=== PATIENT | female | born 1980 | race Caucasian/White ===

== ENCOUNTER 2017-09-01 21:27 | Observation (INO) | payer SELFPAY ==
[2017-09-01] MEDS ORDERED: Morphine 4 MG/ML VIAL ONE (22:24)
[2017-09-01] MEDS ORDERED: Ondansetron HCl/PF 4 MG/2 ML Vial ONE (22:25)
--- NOTE | 2017-09-01 23:05 | ULT ---
RIGHT UPPER QUADRANT SONOGRAM: 09/01/17 HISTORY: Right upper quadrant pain. FINDINGS: Gallbladder is distended up to 9.0 cm. No stones are apparent. There is no pericholecystic fluid. Leeann er is unremarkable without focal mass or intrahepatic biliary dilatation. Common duct is slightly dil ated at 0.8 cm. No free fluid is apparent. IMPRESSION: Distention of the common duct and gallbladder or evidence of central biliary obstruction. No tones ar e directly visualized. Clinical correlation regarding other signs and symptoms of biliary obstruction is required. Radionuclide hepatobiliary scan could be used to evaluate for biliary patency if needed . POS: [facility]
[2017-09-02] MEDS ORDERED: Morphine 4 MG/ML VIAL ONE (01:07)
[2017-09-02] MEDS ORDERED: Ondansetron HCl/PF 4 MG/2 ML Vial ONE (01:07)
[2017-09-02] MEDS ORDERED: traMADol HCl 50 MG TAB PO PRN (02:28)
[2017-09-02] MEDS ORDERED: Nitroglycerin 0.4 MG TAB (25 Tab Bottle) SL PRN (02:28)
[2017-09-02] MEDS ORDERED: Benzonatate 100 MG CAP PO PRN (02:28)
[2017-09-02] MEDS ORDERED: Loratadine 10 MG TAB PO PRN (02:28)
[2017-09-02] MEDS ORDERED: Bisacodyl 5 MG TAB PO PRN (02:28)
[2017-09-02] MEDS ORDERED: Mag-Al 1200 mg/1200 mg/30 ML UDCUP PO PRN (02:28)
[2017-09-02] MEDS ORDERED: Calcium Carbonate 500 MG ChewTAB PO PRN (02:28)
[2017-09-02] MEDS ORDERED: Lorazepam 2 MG/ML VIAL SLOW IVP PRN (02:28)
[2017-09-02] MEDS ORDERED: Senokot 8.6 MG TAB PO PRN (02:28)
[2017-09-02] MEDS ORDERED: hydrALAZINE 20 MG/ML VIAL SLOW IVP PRN (02:28)
[2017-09-02] MEDS ORDERED: cloNIDine 0.1 MG TAB PO PRN (02:28)
[2017-09-02] MEDS ORDERED: Ondansetron HCl/PF 4 MG/2 ML Vial IVP PRN (02:28)
[2017-09-02] MEDS ORDERED: Acetaminophen 325 MG TAB PO PRN (02:28)
[2017-09-02] MEDS ORDERED: HYDROcodone/Acetaminophen 5/325 mg Tablet PO PRN (02:28)
[2017-09-02] MEDS ORDERED: Diabetic Tussin 200 MG/10 ML UDCUP PO PRN (02:28)
[2017-09-02 02:50] VITALS: BMI 33.8
[2017-09-02] MEDS ORDERED: Melatonin 3 MG TAB PO PRN (03:05)
[2017-09-02] MEDS: Morphine PF 1 MG/ML SYR IVP PRN ×4 (03:49→21:11)
[2017-09-02] MEDS: Sodium Chloride 0.9% 1,000 ML IV SCH ×2 (03:55→13:36)
[2017-09-02] MEDS: MEROPENEM 1 GM/50 ML 1 GM in Premix Bag 1 BAG IVPB SCH ×3 (03:57→21:15)
--- NOTE | 2017-09-02 05:29 | HP ---
DATE OF ADMISSION: 09/02/2017 PRIMARY CARE PHYSICIAN: None. CHIEF COMPLAINT: Right-sided abdominal pain. HISTORY OF PRESENT ILLNESS: Ms. Berman is a very pleasant 37-year-old female with past medical histo ry of cervical cancer, status post hysterectomy, who presented to the emergency room with the above-m entioned complaints. History is mainly obtained by the patient herself and electronic medical record s have been reviewed. According to the patient, she started to have some low grade abdominal pain on the right side few day s ago. It has progressively gotten worse to the point where she describes it at 15/10 in intensity. It was associated with nausea and yesterday she vomited 3 times. She has been having some low grade fever as well as chills. She denies any chest pain, shortness of breath or cough. She denies any h ematochezia, melena, diarrhea or constipation. She denies any dysuria, frequency or urgency. The pa in is mainly located in the right upper quadrant. She denies any alcohol or drug abuse. Upon presentation to the emergency room initially at [facility], she was hemodynamically stable. H er workup showed a urinary tract infection as well as leukocytosis and she was transferred to our [facility] for further evaluation. She had an acute abdominal series done at [facility], which was u nremarkable. She underwent abdominal ultrasound given her right upper quadrant pain in our emergency room. It showed distended gallbladder up to 9 cm with mild distention of the CBD at 0.8 cm, without any significant biliary obstruction. There is no pericholecystic fluid, no gallbladder stones. She has received Rocephin in the [facility] for possible urinary tract infection. Jean-Pierre khalil note that she was seen in the emergency room about 2 days ago for complaints of sore throat and montero s received one dose of prednisone. PAST MEDICAL HISTORY: History of cervical cancer, status post hysterectomy. PAST SURGICAL HISTORY: Hysterectomy and tubal ligation. PSYCHIATRIC HISTORY: No anxiety or depression. SOCIAL HISTORY: She is and lives with her . No history of alcohol, drug or tobacco a buse. FAMILY HISTORY: Significant for hypertension and diabetes in multiple family members. Her father di ed of a stroke and her mother has had heart problems. ALLERGIES: CODEINE and PENICILLIN. CURRENT MEDICATIONS: None. REVIEW OF SYSTEMS: The following complete review of systems was negative, unless otherwise mentioned in the HPI or below: Constitutional: Weight loss or gain, ability to conduct usual activities. Skin: Rash, itching. Eyes: Double vision, pain. ENT/Mouth: Nose bleeding, neck stiffness, pain, tenderness. Cardiovascular: Palpitations, dyspnea on exertion, orthopnea. Respiratory: Shortness of breath, wheezing, cough, hemoptysis, fever or night sweats. Gastrointestinal: Poor appetite, abdominal pain, heartburn, nausea, vomiting, constipation, or diarr hea. Genitourinary: Urgency, frequency, dysuria, nocturia. Musculoskeletal: Pain, swelling. Neurologic/Psychiatric: Anxiety, depression. Allergy/Immunologic: Skin rash, bleeding tendency. LABORATORY DATA AND IMAGING: CBC shows WBC at 20.5 with 88% neutrophils, hemoglobin 13.3, platelet c ount 280. Serum chemistries show glucose of 125, otherwise unremarkable. Lipase is normal. Urinaly sis shows trace blood and squamous epithelial cells, but rare bacteria, no WBCs and no leukocyte jess rase. Urine test is negative. Abdominal ultrasound by my review as per HPI. PHYSICAL EXAMINATION: VITAL SIGNS: Most recent vital signs include temperature 97.6, pulse of 66, respirations 18, saturat ing 96% on room air, and blood pressure 111/56. GENERAL: The patient appears more comfortable at this time. Nontoxic. No acute distress, awake, al ert, oriented x3. HEENT: Mucous membranes are moist and pink. No oropharyngeal exudate or erythema. Head is normocep halic, atraumatic. Pupils are equal, reactive to light and accommodation. Extraocular movements int act. NECK: Supple without any lymphadenopathy, JVD or bruit. CHEST: Clear to auscultation without any wheezing, rales or rhonchi. Rhythm is regular without any murmur, rubs or gallops. ABDOMEN: Tender to palpation in the right upper quadrant and Benoit's sign is positive. No guarding , rebound or rigidity. No suprapubic tenderness. NEUROLOGIC: Nonfocal. SKIN: Free of any rashes or bruises. I feel warm and dry to touch. PSYCHIATRIC: Normal affect. VASCULAR: With +2 pedal pulses felt bilaterally. IMPRESSION AND PLAN: 1. Right upper quadrant pain. The patient's clinical signs and symptoms are consistent with acute g allbladder colic. It is less likely that she has cholecystitis. At this time, we will admit her to the medical floor and continue supportive care in the form of IV fluids, pain medication, nausea medi cation. Gastroenterology will be consulted in the morning. We will order a HIDA scan for her at thi s time. More than likely, the patient will need a cholecystectomy for symptomatic biliary colic. Em piric antibiotics will be continued at this time. It is unclear from the urinalysis that she has a U TI or not. I am not sure if the urine was collected for culture. She will be kept n.p.o. for now. She is otherwise hemodynamically stable. 2. History of cervical cancer. She is status post hysterectomy. 3. Deep venous thrombosis and gastrointestinal prophylaxis. 4. P.r.n. medication order. DISPOSITION: The patient is currently being admitted under observation status for right upper quadra nt pain. Further management will depend upon her clinical course. If she does require cholecystecto my, she can be changed to inpatient status.
[2017-09-02 05:37] LABS: #Basophils 0.1 thou/uL (0.0-0.2); #Lymphocytes 2.5 thou/uL (1.20-3.40); #Monocytes 1.3 thou/uL (0.11-0.59); #Neutrophils 10.5 thou/uL (1.40-6.50); %Basophils 0.4 % (0.0-1.0); %Eosinophils 0.2 % (0.0-10.0); %Lymphocytes 17.5 % (21.0-51.0); %Monocytes 8.9 % (0.0-10.0); Hematocrit 33.2 % (36.0-47.0); Mean Platelet Volume 8.2 fL (7.4-10.4); Red Blood Cell (RBC) Count 3.65 mill/uL (4.20-5.40); White Blood Cell (WBC) Count 14.4 thou/uL (4.8-10.8)
[2017-09-02 05:45] LABS: Hemoglobin A1c 4.8 % (4.0-6.0)
[2017-09-02 05:50] LABS: Anion Gap 8 mmol/L (10-20); BUN (Urea Nitrogen) 19 mg/dL (7.0-18.7); Calc. Creatinine Clearance 127 mL/min (70-130); Calcium 8.5 mg/dL (7.8-10.44); Carbon Dioxide 27 mmol/L (22-29); Chloride 109 mmol/L (98-107); Estimated GFR-MDRD 86
[2017-09-02] MEDS: Famotidine/PF 20 mg/2ml Vial SLOW IVP SCH ×2 (09:29→21:08)
[2017-09-02] MEDS: Enoxaparin Sodium 40 MG/0.4 ML SYRINGE SC SCH (09:29)
--- NOTE | 2017-09-02 14:39 | NM ---
HEPATOBILIARY SCAN: DATE: 09/02/17. HISTORY: Right upper quadrant pain. TECHNIQUE: Following the intravenous administration of 4.9 mCi Technetium 99m labeled mebrofenin, anterior plana r imaging of the abdomen obtained over 60 minutes. Upon visualization of the gallbladder, 1.6 mcg of CCK administered to calculated the gallbladder ejection fraction. FINDINGS: There is prompt radiotracer activity within the liver on post-injection imaging. There is gallbladde r activity by 10 minutes. Gallbladder ejection fraction is 68%, within normal limits. IMPRESSION: Normal hepatobiliary scan. POS: [facility]
--- NOTE | 2017-09-02 15:07 | PDOC.PN ---
- Subjective Encounter Start Date: 09/02/17 Encounter Start Time: 15:05 c/o ruq pain no n/v no f/c - Objective MAR Reviewed: Yes Vital Signs & Weight: Vital Signs (12 hours) Temp Pulse Resp BP Pulse Ox 09/02/17 07:40 97.6 F 66 18 120/59 L 97 09/02/17 04:00 97.6 F 66 18 111/56 L 96 Weight Weight 173 lb 3 oz I&O: 09/01/17 09/02/17 09/03/17 06:59 06:59 06:59 Intake Total 112 307 Balance 112 307 Result Diagrams: 09/02/17 05:19 09/02/17 05:19 Phys Exam - Physical Examination Constitutional: NAD HEENT: PERRLA Neck: no JVD Respiratory: no wheezing Cardiovascular: no significant murmur Gastrointestinal: non-tender Musculoskeletal: pulses present Neurological: moves all 4 limbs Psychiatric: A&O x 3 Dx/Plan (1) RUQ pain Code(s): R10.11 - RIGHT UPPER QUADRANT PAIN Status: Acute Comment: due to gall bladder pathology (2) CA cervix Code(s): C53.9 - MALIGNANT NEOPLASM OF CERVIX UTERI, UNSPECIFIED Status: Acute - Plan * f/u hida scan * pain mx * f/u gi plan
[2017-09-02] MEDS ORDERED: Propofol 200 MG/20 ML VIAL ONE (20:23)
--- NOTE | 2017-09-03 00:58 | CON ---
DATE OF CONSULTATION: 09/02/2017 CHIEF COMPLAINT: Abdominal pain. HISTORY OF PRESENT ILLNESS: Ms. Berman is a 37-year-old woman who complains of intermittent right up per quadrant pain over the last couple of months. Aching pain that starts pretty immediately after e ating and worse after dairy or red meat. Her pain is in the right upper quadrant below the right rib s and radiates to her right back. Her pain previously would go on for an hour or two at a time aroun d once per week; however, last week she had 2 episodes and then this past early many morning the pain came on and has persisted. On Wednesday, she went to the ER with a sore throat and was told she had st rep and she was given an antibiotic. She was given a prescription for azithromycin, but was unable t o afford that prescription. She, that night, developed worsening pain in the right upper quadrant. The pain has been persistent since and she has had constant nausea. She vomited once today and once y esterday. She had a normal formed brown bowel movement yesterday. Her pain did not improve with bow el the movement. She reports a 20-pound weight loss over the last couple of months due to this pain and avoiding foods that are more likely to bring the pain on. PAST MEDICAL HISTORY: Cervical cancer treated with partial hysterectomy. She did not require chemot herapy or radiation. PAST SURGICAL HISTORY: Tubal ligation and partial hysterectomy. SOCIAL HISTORY: She is . No alcohol, drug, or tobacco use. In the distant past, she did try nasal cocaine. FAMILY HISTORY: Negative for GI malignancy. Her sister had breast cancer. ALLERGIES: CODEINE, PENICILLIN. MEDICATIONS AT HOME: She takes Excedrin a couple times per week. REVIEW OF SYSTEMS: Negative x10 systems reviewed except as stated in the history of present illness. PHYSICAL EXAMINATION: VITAL SIGNS: Temperature 97.6, pulse 59, blood pressure 117/61. GENERAL: She is in no acute distress, alert and oriented x3. HEENT: Eyes have no scleral icterus. Oropharynx is clear, without lesions. NECK: No cervical or supraclavicular lymphadenopathy. LUNGS: Clear to auscultation bilaterally. HEART: Regular rate and rhythm without murmur. ABDOMEN: Soft, nontender, nondistended. Bowel sounds are present. EXTREMITIES: No lower extremity edema. LABORATORY DATA: White blood cell count last night was 20 down to 14 this morning, hemoglobin 11.3, platelets 249, eosinophils 0. Creatinine 0.76, bilirubin 0.3, AST 24, ALT 43, alkaline phosphatase 5 7, lipase 5. Imaging ultrasound showed the gallbladder to be distended to 9 cm without inflammatory changes. No stones were seen. Her bile duct was slightly dilated at 8 mm. HIDA scan was performed, which showed an appropriate gallbladder filling and a 68% ejection fraction. IMPRESSION: Right upper quadrant abdominal pain, which is radiates to the right back and worsens pos tprandially. Her symptoms are suggestive of gallbladder; however, ultrasound was negative for stones and her HIDA scan filled and emptied appropriately. She had a mildly dilated bile duct with normal LFTs. The gallbladder was noted to be distended. RECOMMENDATIONS: We will plan EGD this evening to rule out peptic ulcer disease. If EGD is negative , then I will consult General Surgery in the morning to evaluate or to consider cholecystectomy. The patient greatly desires to have cholecystectomy performed. If the EGD is normal, then I find no oth er source for her symptoms. Her lipase is normal. There was some abnormality with the gallbladder b y ultrasound and her symptoms are suggestive of gallbladder.
[2017-09-03] MEDS: Morphine PF 1 MG/ML SYR IVP PRN ×2 (03:45→08:41)
[2017-09-03] MEDS: MEROPENEM 1 GM/50 ML 1 GM in Premix Bag 1 BAG IVPB SCH (03:49)
--- NOTE | 2017-09-03 03:52 | OP ---
DATE OF PROCEDURE: 09/02/2017 PROCEDURE: Esophagogastroduodenoscopy with biopsy. PREOPERATIVE DIAGNOSIS: Right upper quadrant abdominal pain. OPERATIVE NOTE: Informed consent was obtained from the patient. She was sedated with total intraven ous anesthesia. The bite block was placed and the endoscope was advanced easily to the second portio n of the duodenum and retroflexion was performed in the stomach. The esophagus was normal. The GE j unction was normal. The stomach had mild erosive gastritis in the antrum. Biopsies were taken to ru le out H. pylori. The stomach was otherwise normal including retroflexed views. There is mild eryth ematous duodenitis in the first portion of the duodenum. The second portion of the duodenum was norm al. Biopsies were taken to rule out celiac disease. Air was suctioned from the stomach. The proced ure was completed. IMPRESSION: 1. Mild erosive gastritis, biopsy to rule out Helicobacter pylori. 2. Mild erythematous duodenitis in the first portion of the duodenum. Biopsies taken to rule out ce liac disease. 3. Otherwise normal esophagogastroduodenoscopy. The above findings were very mild and would not be expected to be the source of her right upper quadrant pain. Given the symptoms highly suggestive of biliary source and the dilated gallbladder on ultrasound. General Surgery opinion will be sought to consider the possibility of cholecystectomy. RECOMMENDATIONS: 1. Proton pump inhibitor daily for 2 to 4 weeks. 2. Await histopathology. 3. Avoid aspirin and NSAIDs. 4. General Surgery consultation.
[2017-09-03 05:38] LABS: #Basophils 0.1 thou/uL (0.0-0.2); #Eosinphils 0.1 thou/uL (0.0-0.7); #Lymphocytes 2.9 thou/uL (1.20-3.40); #Monocytes 0.5 thou/uL (0.11-0.59); #Neutrophils 4.7 thou/uL (1.40-6.50); %Basophils 0.6 % (0.0-1.0); %Eosinophils 1.2 % (0.0-10.0); %Lymphocytes 35.1 % (21.0-51.0); %Monocytes 5.8 % (0.0-10.0); Hematocrit 32.4 % (36.0-47.0); Mean Platelet Volume 8.2 fL (7.4-10.4); Red Blood Cell (RBC) Count 3.57 mill/uL (4.20-5.40); White Blood Cell (WBC) Count 8.3 thou/uL (4.8-10.8)
[2017-09-03 05:50] LABS: Anion Gap 6 mmol/L (10-20); BUN (Urea Nitrogen) 11 mg/dL (7.0-18.7); BUN/Creatinine Ratio 16.92; Calc. Creatinine Clearance 148 mL/min (70-130); Carbon Dioxide 27 mmol/L (22-29); Chloride 106 mmol/L (98-107); Estimated GFR-MDRD Greater than 90; Phosphorus 3.2 mg/dL (2.3-4.7)
[2017-09-03] MEDS: Sodium Chloride 0.9% 1,000 ML IV SCH ×2 (06:33→17:08)
[2017-09-03] MEDS: Famotidine/PF 20 mg/2ml Vial SLOW IVP SCH ×2 (08:40→21:00)
[2017-09-03] MEDS: Enoxaparin Sodium 40 MG/0.4 ML SYRINGE SC SCH (08:40)
[2017-09-03] MEDS ORDERED: FLU VACC QS2017-18 36 mo. & older 0.5 ML SYRINGE IM ONE (09:00)
[2017-09-03 11:51] LABS: ALT (SGPT) 19 U/L (8-55); AST (SGOT) 9 U/L (5-34); Alkaline Phosphatase 42 U/L (40-150); Bilirubin, Direct 0.1 mg/dL (0.1-0.3); Bilirubin, Total 0.3 mg/dL (0.2-1.2); Protein, Total 5.4 g/dL (6.0-8.3)
[2017-09-03] MEDS ORDERED: Meropenem 1 GM in Sodium Chloride 0.9% 100 ML IVPB SCH (12:00)
--- NOTE | 2017-09-03 12:21 | PDOC.PN ---
- Subjective Encounter Start Date: 09/03/17 Encounter Start Time: 12:20 c/o ruq pain no n/v no f/c - Objective MAR Reviewed: Yes Vital Signs & Weight: Vital Signs (12 hours) Temp Pulse Resp BP Pulse Ox 09/03/17 08:47 97.8 F 70 18 104/55 L 98 09/03/17 08:00 97.8 F 83 18 Weight Weight 173 lb 3 oz I&O: 09/02/17 09/03/17 09/04/17 06:59 06:59 06:59 Intake Total 112 1793.9 2 Output Total 100 Balance 112 1693.9 2 Result Diagrams: 09/03/17 05:18 09/03/17 05:18 Phys Exam - Physical Examination Constitutional: NAD HEENT: PERRLA Neck: no JVD Respiratory: no wheezing Cardiovascular: no significant murmur Gastrointestinal: soft ruq tenderness Musculoskeletal: pulses present Neurological: normal sensation Psychiatric: A&O x 3 Dx/Plan (1) RUQ pain Code(s): R10.11 - RIGHT UPPER QUADRANT PAIN Status: Acute Comment: due to gall bladder pathology (2) CA cervix Code(s): C53.9 - MALIGNANT NEOPLASM OF CERVIX UTERI, UNSPECIFIED Status: Acute - Plan * s/p egd- mild erosive gastritis * for gb surg today *
--- NOTE | 2017-09-03 12:37 | CON ---
DATE OF CONSULTATION: 09/03/2017 REASON CHIEF COMPLAINT: Right upper quadrant pain. HISTORY OF PRESENT ILLNESS: Ms. Berman is a 37-year-old woman with a 2 month history of intermittent right upper quadrant pain radiating from her back. Initially this was only intermittent and would c ome on soon after eating, especially if she ate red meat. However, for the past 5 days the pain has been constant, although waxing and waning in severity. She had fevers subjectively at home before co kofi to the hospital, but has not had any since. She was started on antibiotics on admission. She h as had a fairly extensive workup and the abdominal film did not show any evidence for obstruction. A n ultrasound of the gallbladder did not show stones, but did show a very distended gallbladder and a slightly dilated common bile duct. A HIDA scan did not show any definite obstruction to flow of bile into the duodenum. The gallbladder filled promptly and the ejection fraction was 68%. The patient had multiple episodes of nausea and vomiting during the test; however. Currently her pain is control led as is her nausea. She states that for the past 2 months she has not had much of an appetite and has really cut back on what she will eat and how much she will eat. As a result she has lost about 2 0 pounds over the past 2 months; however, her abdomen to her still feels bloated. PAST MEDICAL HISTORY: Cervical cancer. PAST SURGICAL HISTORY: Vaginal hysterectomy. The patient still has both her ovaries. She has also had tubal ligation in the past. She has had a tonsillectomy and adenoidectomy and all her wisdom anand th removed as well. FAMILY HISTORY: Breast cancer in a sister at 22 years of age. The patient has been tested for BRCA and is negative. Also, a family history of heart disease and diabetes in older relatives. OUTPATIENT MEDICATIONS: None. INPATIENT MEDICATIONS: She is on scheduled meropenem, subcutaneous Lovenox, although that was held t his morning and multiple p.r.n.s. She is on Pepcid b.i.d. IV. PHYSICAL EXAMINATION: VITAL SIGNS: The patient is afebrile, heart rate 70, respirations 18, 98% saturated on room air, blo od pressure 104/55. GENERAL: Reveals a healthy appearing young woman in no acute distress. She is not jaundiced or icte shani. She is not flushed or toxic in appearance. HEENT: Unremarkable. NECK: Supple, without lymphadenopathy or thyroid nodules. HEART: Regular in its rate and rhythm without murmurs, rubs or gallops. LUNGS: Clear to auscultation. She does have pain in the right upper quadrant with deep inspiration. ABDOMEN: Soft and nondistended. She does not have any palpable masses or hernias. Her tubal ligati ons scar is well healed. She is very tender to palpation in the right upper quadrant, but does not e xhibit rigidity, rebound or guarding. No palpable masses or hernias. EXTREMITIES: Warm and well perfused without edema. NEUROLOGIC: No focal deficits. PSYCHIATRIC: Alert, oriented, and appropriate. REVIEW OF SYSTEMS: Ten system review of systems is negative except per HPI. LABS: LFTs 2 days ago were normal. White count yesterday was slightly elevated at 14.4, but is norm al today at 8.3, hematocrit is 32, which is stable and electrolytes are unremarkable. She is negativ e for hepatitis B surface antigen and hepatitis C antibody. ASSESSMENT: Right upper quadrant pain which is very consistent with biliary colic, although her ultr asound and HIDA scan did not show any gross abnormalities. I am concerned the patient may have a par tially obstructing common bile duct stone or chronic cholecystitis and I have recommended laparoscopi c cholecystectomy with intraoperative cholangiogram to further evaluate this and to treat her right u pper quadrant pain. The procedure and its inherent risks were discussed in detail with the patient. These risks include, but are not limited to bleeding, infection, risks of anesthesia, damage to near by structures including bowel, liver and bile duct, need for open surgery or other procedures. She u nderstands and accepts these risks and wishes to proceed. All of her questions were answered.
[2017-09-03] MEDS ORDERED: Bupivacaine/Epinephrine 0.25% 30 ML VIAL ONE (12:52)
[2017-09-03] MEDS ORDERED: Iothalamate Meglumine 60% 50 ML VIAL FS ONE (12:52)
[2017-09-03] MEDS ORDERED: Fentanyl 250 MCG/5 ML VIAL ONE (13:13)
[2017-09-03] MEDS ORDERED: Ketorolac Tromethamine 30 MG/ML VIAL ONE (13:39)
[2017-09-03] MEDS ORDERED: Glycopyrrolate 0.2 MG/ML 5 ML SYRINGE ONE (13:39)
[2017-09-03] MEDS ORDERED: Lidocaine 1% PF 5 ML VIAL ONE (13:39)
[2017-09-03] MEDS ORDERED: Ondansetron HCl/PF 4 MG/2 ML Vial ONE (13:39)
[2017-09-03] MEDS ORDERED: Dexamethasone 20 MG/5 ML VIAL ONE (13:39)
[2017-09-03] MEDS ORDERED: Propofol 200 MG/20 ML VIAL ONE ×2 (13:39)
[2017-09-03] MEDS ORDERED: Promethazine HCl 25 MG/ML VIAL SLOW IVP PRN (15:05)
[2017-09-03] MEDS ORDERED: Ondansetron HCl/PF 4 MG/2 ML Vial IVP PRN (15:05)
[2017-09-03] MEDS ORDERED: Promethazine HCl 25 MG/ML VIAL IM PRN (15:05)
[2017-09-03] MEDS ORDERED: Fentanyl 100 MCG/2 ML VIAL ONE (15:10)
[2017-09-03] MEDS ORDERED: HYDROcodone/Acetaminophen 7.5/325 mg Tablet PO PRN (16:11)
[2017-09-03] MEDS ORDERED: traMADol HCl 50 MG TAB PO PRN (16:12)
--- NOTE | 2017-09-03 18:56 | RAD ---
XR CHOLANGIOGRAM IN SURGERY: 09/03/17 HISTORY: Cholecystectomy. COMPARISON: None. FINDINGS: The cystic duct appears to be cannulated. There is moderate intrahepatic and extrahepatic biliary dil atation. The cystic duct has a low insertion of the common bile duct. IMPRESSION: 1. Low insertion of the cystic duct. 2. Moderate extrahepatic biliary dilatation. POS: [facility]
[2017-09-03] MEDS: HYDROcodone/Acetaminophen 7.5/325 mg Tablet PO PRN ×2 (19:22→23:12)
--- NOTE | 2017-09-03 19:39 | PRG ---
DATE OF SERVICE: 09/03/2017 SUBJECTIVE: Ms. Berman had gallbladder surgery today. Her pain is pretty much resolved now. She montero s been up ambulating and she feels much better and is very happy with her results. OBJECTIVE: VITAL SIGNS: Temperature is 98.2, pulse 70, blood pressure 102/59. GENERAL: She is in no acute distress, awake and alert. LUNGS: Clear to auscultation bilaterally. HEART: Regular rate and rhythm. ABDOMEN: Soft. Bowel sounds are present. EXTREMITIES: No lower extremity edema. IMPRESSION: Biliary dyskinesis and pain. Status post cholecystectomy today. The OP report has not yet been transcribed and I will follow up on this. Her LFTs have remained normal. RECOMMENDATIONS: 1. Await histopathology. 2. Anticipate discharge home in the morning. I will sign off for now. Please call if GI can be of assistance.
[2017-09-03] MEDS: Meropenem 1 GM in Sodium Chloride 0.9% 100 ML IVPB SCH (20:11)
[2017-09-03] MEDS: traMADol HCl 50 MG TAB PO PRN (21:23)
[2017-09-04] MEDS: Sodium Chloride 0.9% 1,000 ML IV SCH (00:23)
[2017-09-04] MEDS: traMADol HCl 50 MG TAB PO PRN ×2 (01:41→08:40)
[2017-09-04] MEDS ORDERED: Meropenem 1 GM in Sodium Chloride 0.9% 100 ML IVPB SCH (04:00)
[2017-09-04] MEDS: Meropenem 1 GM in Sodium Chloride 0.9% 100 ML IVPB SCH (04:29)
[2017-09-04] MEDS: HYDROcodone/Acetaminophen 7.5/325 mg Tablet PO PRN ×2 (04:33→11:24)
[2017-09-04 05:19] LABS: #Lymphocytes 1.4 thou/uL (1.20-3.40); #Monocytes 0.7 thou/uL (0.11-0.59); #Neutrophils 9.9 thou/uL (1.40-6.50); %Basophils 0.1 % (0.0-1.0); %Eosinophils 0.1 % (0.0-10.0); %Lymphocytes 11.8 % (21.0-51.0); %Monocytes 5.8 % (0.0-10.0); Mean Platelet Volume 7.7 fL (7.4-10.4); Red Blood Cell (RBC) Count 3.42 mill/uL (4.20-5.40); White Blood Cell (WBC) Count 12.1 thou/uL (4.8-10.8)
[2017-09-04] MEDS: Famotidine/PF 20 mg/2ml Vial SLOW IVP SCH (08:40)
[2017-09-04] MEDS: Enoxaparin Sodium 40 MG/0.4 ML SYRINGE SC SCH (08:41)
[2017-09-04 08:50] VITALS: BP 117/68; TEMP 97.6
--- NOTE | 2017-09-04 10:45 | PDOC.PN ---
- Subjective Encounter Start Date: 09/04/17 Encounter Start Time: 10:44 Patient seen and examined. No new complaints. No overnight events - Objective MAR Reviewed: Yes Vital Signs & Weight: Vital Signs (12 hours) Temp Pulse Resp BP Pulse Ox 09/04/17 08:50 97.6 F 68 18 117/68 95 09/04/17 08:30 97.6 F 68 18 09/03/17 23:07 97.9 F 69 18 137/63 99 Weight Weight 173 lb 3 oz I&O: 09/03/17 09/04/17 09/05/17 06:59 06:59 06:59 Intake Total 1793.9 3862 Output Total 100 Balance 1693.9 3862 Result Diagrams: 09/04/17 05:09 09/03/17 05:18 Phys Exam - Physical Examination Constitutional: NAD HEENT: PERRLA Neck: no JVD Respiratory: no wheezing Cardiovascular: no significant murmur Gastrointestinal: no distention Musculoskeletal: pulses present Neurological: moves all 4 limbs Dx/Plan (1) RUQ pain Code(s): R10.11 - RIGHT UPPER QUADRANT PAIN Status: Acute Comment: due to gall bladder pathology (2) CA cervix Code(s): C53.9 - MALIGNANT NEOPLASM OF CERVIX UTERI, UNSPECIFIED Status: Acute - Plan * doing fine * eating * ambulating * pain controlled on po meds * d/c home * f/u with surg in 2 wks
--- NOTE | 2017-09-04 16:02 | DIS ---
DATE OF ADMISSION: 09/02/2017 DATE OF DISCHARGE: 09/04/2017 DIAGNOSES ON DISCHARGE: 1. Biliary colic, status post laparoscopic cholecystectomy, doing well. 2. History of uterine cancer, status post hysterectomy. 3. Mild erosive gastritis. DISCHARGE MEDICATIONS: Tramadol, [place] for pain control, Protonix and continuation of all other home medications. CONSULTANTS: GI and Surgery. BRIEF HOSPITAL COURSE: A 37-year-old pleasant lady came into the hospital with right-sided abdominal pain. Please refer to the admitting physician's H&P for further details. The ultrasound did show d istended gallbladder up to 9 cm with mild distention of the CBD. HIDA scan was done, which was bailey l. GI scoped her and saw only mild gastritis, so surgery was consulted. Dr. Byrne diagnosed it as biliary colic and suggested laparoscopic cholecystectomy. The patient was okay with that. She unde rwent the laparoscopic cholecystectomy and right now is much better. She is ambulating, eating, and vital signs are stable. She is right now medically stable to be discharged with outpatient follow up with Dr. Byrne in 2 weeks. She is asked not to lift more than 20 pounds until she sees the surgeo n. She understands all this. She was asked to come back to the emergency room in case symptoms recu r. Total time for this discharge took 35 minutes.
--- NOTE | 2017-09-08 12:20 | PDOC.OP ---
Operative Note - Operative Note Operative Note: PROCEDURE: Laparoscopic cholecystectomy with intraoperative cholangiogram SURGEON: Stephanie Byrne M.D. DATE OF PROCEDURE: 09/03/2017 PREOPERATIVE DIAGNOSIS: Cholelithiasis and cholecystitis, possible choledocholithiasis: POSTOPERATIVE DIAGNOSIS: Cholelithiasis and cholecystitis HISTORY: 37-year-old woman with chronic right upper quadrant pain, nausea and vomiting especially after eating red meat. Ultrasound of the gallbladder was normal and HIDA scan had a normal ejection fraction although she did have symptoms of nausea and vomiting during the test. 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 Her bile duct was mildly dilated on ultrasound so cholangiogram was recommended to rule out choledocholithiasis. FINDINGS: Distended gallbladder with omental adhesions. Normal intraoperative clinic PROCEDURE IN DETAIL: After informed consent was obtained and appropriate preoperative antibiotics were administered, the patient was taken to the operating room and placed in the supine position and general endotracheal anesthesia was administered. The stomach was decompressed with an OG tube and the abdomen was prepped and draped in standard sterile fashion. Local anesthesia was infused to the skin and subcutaneous tissues at the umbilical level. A transverse skin incision was made. The fascia was elevated and a Veress needle was placed into the abdominal cavity without difficulty. Opening pressure was less than 5 and carbon dioxide gas easily insufflated to an intra- abdominal pressure of 15, which the patient tolerated well. The Veress needle was withdrawn and a [place] port advanced under direct vision. The abdominal cavity was carefully examined. There was no evidence of Veress needle or of trocar injury. Local anesthesia was infused to the skin and subcutaneous tissues at the epigastric, right upper quadrant, and right lateral abdominal sites and trocars were placed under direct vision of the laparoscope. The fundus of the gallbladder was grasped and retracted superiorly. Omental adhesions which appear chronic were stripped inferiorly exposing the infundibulum. The infundibulum was grasped and retracted laterally. The serosa was stripped inferiorly at the level of the neck of the gallbladder exposing the cystic duct and artery which were traced clearly to their insertion in the gallbladder. These were dissected free circumferentially and the cystic duct was clipped at the level of the neck of the gallbladder. The cystic artery was clipped but not divided. An incision was made in the cystic duct inferior to the clip and the cystic duct was palpated with no stones palpable. Clear bile was seen to flow from the cystic duct incision. A cholangiogram catheter was introduced and placed into the cystic duct and secured. A cholangiogram was obtained which showed an adequate length of cystic duct. There was normal filling of the common bile duct with free flow of contrast into the duodenum. There was normal retrograde flow into the common hepatic duct beyond the level of the bifurcation without filling defects. The cholangiogram catheter was removed and the cystic duct clipped below the incision in the cystic duct. The cystic duct was divided between these clips and the previously placed clip. The cystic artery was clipped and divided between the previously placed clips. The gallbladder was then dissected free of the gallbladder bed using hook electrocautery. A small tear was created in the gallbladder during this process and large amount of bile and sludge suctioned out of the gallbladder. Prior to complete removal of the gallbladder from the gallbladder bed, the area of the cystic duct and artery stumps was examined. The clips were in good position completely across these structures and there was no bleeding and no leakage of bile. The gallbladder was then placed into an EndoCatch bag and drawn out through the epigastric incision. The epigastric trocar was replaced and the operative site easily irrigated to clear. There was no significant bleeding or spillage of bile. The epigastric trocar was removed and the fascia closed under direct laparoscopic vision with a 0 Vicryl suture on a GraNee needle in a [id number] manner with excellent technical result. The right upper quadrant and right lateral abdominal trocars were removed and hemostasis verified. Carbon dioxide gas was allowed to desufflate through the umbilical trocar which was then removed. The skin incisions were closed with 4-0 subcuticular Monocryl sutures and Dermabond dressings were placed. The patient was extubated and taken to the recovery room in good condition. There were no complications. ESTIMATED BLOOD LOSS: Minimal. SPECIMEN : Gallbladder and contents.
== END 2017-09-04 12:31 | disposition home or self-care (01) ==
LOC: ERS 21:27 → ONC 09-02 01:13
PROVIDERS: ADMIT Internal Medicine; ATTEND Internal Medicine
PROC: 0DB98ZX Excision of Duodenum, Via Natural or Artificial Opening Endoscopic, Diagnostic (ICD-10-PCS; 2017-09-02)
PROC: 0DB48ZX Excision of Esophagogastric Junction, Via Natural or Artificial Opening Endoscopic, Diagnostic (ICD-10-PCS; 2017-09-02)
PROC: 0FT44ZZ Resection of Gallbladder, Percutaneous Endoscopic Approach (ICD-10-PCS; principal; 2017-09-03)
PROC: BF03YZZ Plain Radiography of Gallbladder and Bile Ducts using Other Contrast (ICD-10-PCS; 2017-09-03)
DX: K31.9 Disease of stomach and duodenum, unspecified (principal); K25.9 Gastric ulcer, unspecified as acute or chronic, without hemorrhage or perforation; K81.1 Chronic cholecystitis; Z79.899 Other long term (current) drug therapy; Z88.5 Allergy status to narcotic agent; Z88.0 Allergy status to penicillin; Z98.51 Tubal ligation status; Z90.711 Acquired absence of uterus with remaining cervical stump; Z90.89 Acquired absence of other organs; Z98.818 Other dental procedure status; Z87.891 Personal history of nicotine dependence; Z85.41 Personal history of malignant neoplasm of cervix uteri
CPT/HCPCS: 36415; 47532; 76705; 78227; 80048; 80069; 83036; 85025; 86803; 87040; 87086; 87340; 88304; 88305; 88312; 90471; 90682; 96361; 96365; 96366; 96372; 96374; 96375; 96376; A4216; A9537; G0008; G0378; J1100; J1610; J1650; J1885; J2001; J2185; J2270; J2274; J2405; J2704; J3010; J7050; Q2036; Q9961; S0028